=== PATIENT | male | born 1950 | race Caucasian/White ===

== ENCOUNTER 2017-01-17 11:28 | Inpatient (IN) | payer MEDICARE ==
[~2017-01-17] VITALS: Ht 182.9 cm; Wt 116.3 kg
[~2017-01-17 11:28] MED LIST: LACTATED RINGER'S 1000 ML INJ 2,000 ML IV ONE; NORMOSOL R INJ 1,000 ML IV ONE; ONDANSETRON HCL 4 MG/2 ML VIAL IV PUSH ONE; PROPOFOL 200 MG/20 ML AMP IV ONE; SUGAMMADEX SODIUM 200 MG/2 ML VIAL IV PUSH ONE
[2017-01-17] MEDS ORDERED: LISI10TA PO (12:05)
[2017-01-17] MEDS ORDERED: PLAV75TA29 PO (12:05)
[2017-01-17 12:42] LABS: PROTHROMBIN TIME - PATIENT 11.3 SEC (9.8-11.6)
[2017-01-17] MEDS ORDERED: MANNITOL INJ 50 ML ONE (12:50)
[2017-01-17] MEDS ORDERED: ceFAZolin 2 GM PREMIX 50 ML ONE (12:54)
[2017-01-17] MEDS ORDERED: MIDAZOLAM HCL 2 MG/2 ML VIAL ONE (13:14)
[2017-01-17] MEDS ORDERED: FAMOTIDINE 20 MG/2 ML VIAL ONE (13:14)
[2017-01-17] MEDS ORDERED: DEXAMETHASONE SOD PHOS 4 MG/ML VIAL ONE (13:14)
[2017-01-17] MEDS ORDERED: POVIDONE IODINE 5% (ANTISEPSIS KIT) 4 APPLICATIONS EACH NARE PRN (13:15)
[2017-01-17] MEDS ORDERED: SODIUM CHLORID 0.9% 500 ML IV PRN (13:15)
[2017-01-17] MEDS ORDERED: CHLORHEXIDINE GLUCONATE 2 % 1 PACK (2 CLOTHS) TOPICAL PRN (13:15)
[2017-01-17] MEDS ORDERED: LACTATED RINGER'S 1000 ML IV PRN (13:15)
[2017-01-17] MEDS ORDERED: INSULIN HUMAN REGULAR 1,000 UNITS/10 ML VIAL SQ PRN (13:15)
[2017-01-17] MEDS ORDERED: METOPROLOL TARTRATE 25 MG TAB PO PRN (13:15)
[2017-01-17 15:41] LABS: BLOOD GAS BASE EXCESS -3.6 mmol/L (-2-2); BLOOD GAS HCO3 22 mmol/L (22-26); BLOOD GAS METHEMOGLOBIN 0.7 % (0-2); BLOOD GAS O2 HGB SATURATION 97 % (90-100); BLOOD GAS OXYGEN CONTENT 21.4 Vol % (12.0-20.0); BLOOD GAS PCO2 46 mmHg (38-42); BLOOD GAS PO2 172 mmHG (61-120); BLOOD GAS TOTAL HGB 15.4 G/DL (12.0-16.0); CRITICAL VALUE NO; OXYGEN DEVICE OR GAS; TEMP CORR TO 98.6
[2017-01-17 15:42] LABS: DRAW SITE ALINE; STAT YES
[2017-01-17] MEDS ORDERED: HYDROmorphone HCL PF 2 MG/ML VIAL ONE (16:52)
[2017-01-17] MEDS ORDERED: ONDANSETRON HCL 4 MG/2 ML VIAL IV PUSH PRN (17:45)
[2017-01-17] MEDS ORDERED: MORPHINE SULFATE 4 MG/ML INJ IV PUSH PRN (17:45)
[2017-01-17] MEDS: SODIUM CHLOR 0.9% 1000 ML INJ 1,000 ML IV SCH (19:00)
[2017-01-17] MEDS: ACETAMINOPHEN 1000 MG/100 ML VIAL IV SCH (20:00)
[2017-01-17] MEDS: PANTOPRAZOLE SODIUM 40 MG VIAL IV PUSH SCH (20:00)
[2017-01-17 21:00] VITALS: BP_SYST 131; BP_SYST 137; BP_DIAS 66; PULSE 78; RESP 18; TEMP 97; O2SAT 95
[2017-01-17] MEDS ORDERED: DO NOT ADM ANY ANTICOAGULANT DRUGS PRN (21:15)
[2017-01-18] VITALS (7 sets, daily range): BP systolic 120–176; BP diastolic 58–76; PULSE 64–81; RESP 16–18; TEMP 96.2–97.9; O2SAT 91–98
[2017-01-18] MEDS: SODIUM CHLOR 0.9% 1000 ML INJ 1,000 ML IV SCH ×2 (02:25→11:12)
[2017-01-18] MEDS: ACETAMINOPHEN 1000 MG/100 ML VIAL IV SCH ×4 (02:25→20:00)
[2017-01-18 08:09] LABS: AUTOMATED NEUTROPHIL # 12.7 TH/MM3 (1.8-7.7); BASOPHIL % 0.1 % (0.0-2.0); HEMATOCRIT 41.6 % (39.0-51.0); HEMO FLAGS DIFF FINAL; LYMPH % 5.3 % (9.0-44.0); LYMPHOCYTE # 0.8 TH/MM3 (1.0-4.8); MEAN CELL VOLUME 90.2 FL (80.0-100.0); MEAN CORPUSCULAR HEMOGLOBIN 29.5 PG (27.0-34.0); MEAN CORPUSCULAR HGB CONC 32.8 % (32.0-36.0); MONO % 9.7 % (0.0-8.0); NEUT % 84.9 % (16.0-70.0); PLATELET COUNT 381 TH/MM3 (150-450); RED BLOOD COUNT 4.62 MIL/MM3 (4.50-5.90); RED CELL DISTRIBUTION WIDTH 14.2 % (11.6-17.2)
[2017-01-18 08:31] LABS: BICARBONATE 24.5 MEQ/L (21.0-32.0); POTASSIUM 4.4 MEQ/L (3.5-5.1)
--- NOTE | 2017-01-18 12:44 | HHI.PR ---
Subjective Patient symptoms today doing well. pain controlled. ambulating. voided on own. has appetite. Denies flatus, CP, SOB. Objective Vital Signs Vital Signs Date Time Temp Pulse Resp B/P (MAP) Pulse Ox O2 Delivery O2 Flow Rate FiO2 01/18/17 12:00 96.4 64 16 150/70 (96) 98 01/18/17 08:00 96.2 69 18 152/71 (98) 97 01/18/17 04:00 97.4 81 18 120/58 (78) 95 01/18/17 00:00 97.6 70 18 127/60 (82) 95 01/17/17 21:00 97.0 78 18 137/66 (89) 95 01/17/17 20:30 76 20 146/68 (94) 97 Nasal Cannula 4 01/17/17 19:30 81 20 137/53 (81) 95 Nasal Cannula 4 01/17/17 19:15 82 20 138/63 (88) 95 Nasal Cannula 4 01/17/17 19:00 85 20 140/61 (87) 95 Nasal Cannula 4 01/17/17 18:45 86 20 139/64 (89) 94 Nasal Cannula 4 01/17/17 18:30 88 20 141/63 (89) 90 Nasal Cannula 4 01/17/17 18:10 98.6 92 20 142/66 (91) 94 Nasal Cannula 4 Intake & Output 01/18/17 01/18/17 07:00 19:00 Intake Total 480 ml Output Total 1750 ml Balance -1270 ml Intake Oral 480 ml Output Urine Total 1750 ml Result Diagram: 01/18/17 0752 01/18/17 0752 Objective Remarks NAD. A/O x 3 RRR CTAB. on O2 abd soft, appropriate, minimal distention with abdominal binder in place. No peritoneal signs. Ext NT. No c/c/e Medications and IVs Current Medications Medications (Trade) Dose Ordered Sig/Silvestre Route Start Time Stop Time Status Last Admin Lactated Ringer's 1,000 ml @ 30 mls/hr Q24H PRN IV 01/17/17 13:15 01/20/17 13:14 Sodium Chloride 500 ml @ 30 mls/hr [id number] PRN IV 01/17/17 13:15 01/20/17 13:14 (Lopressor) 25 mg DIETITIAN TEACHER PRN PO 01/17/17 13:15 01/20/17 13:14 (Betadine 5% Antisepsis Kit) 1 applic DIETITIAN TEACHER PRN EACH NARE 01/17/17 13:15 01/20/17 13:14 01/17/17 12:00 (Chlorhexidine 2% Cloth) 3 pack DIETITIAN TEACHER PRN TOPICAL 01/17/17 13:15 01/20/17 13:14 01/17/17 11:40 (NovoLIN R INJ) See Protocol Table ... DIETITIAN TEACHER PRN SQ 01/17/17 13:15 01/20/17 13:14 Cefazolin Sodium 1000 mg/Sodium Chloride 100 ml @ 200 mls/hr Q8H IV 01/17/17 21:00 01/18/17 04:52 (Protonix Inj) 40 mg Q24H IV PUSH 01/17/17 20:00 01/17/17 20:00 (Zofran Inj) 4 mg Q6H PRN IV PUSH 01/17/17 17:45 (Roxicodone) 10 mg Q4H PRN PO 01/17/17 17:45 (Roxicodone) 5 mg Q4H PRN PO 01/17/17 17:45 (Ofirmev 1000 Mg/ 100 ml Inj) 1,000 mg Q6H IV 01/17/17 20:00 01/18/17 11:05 (Morphine Inj) 4 mg Q3H PRN IV PUSH 01/17/17 17:45 Sodium Chloride 1,000 ml @ 125 mls/hr Q8H IV 01/17/17 17:45 01/18/17 11:12 Miscellaneous Information ALL NURSING DEPARTME... UNSCH PRN .XX 01/17/17 21:15 01/18/17 21:14 Assessment and Plan Assessment and Plan POD #1 s/p Right Robotic Radical Nephrectomy -doing well. -Hgb stable. -Advance diet -Hep Lock IV -GI/DVt prophylaxis -Ambulate, IS -Creatinine rising as expected. Repeat BMP in Ben Rothman MD Jan 18, 2017 12:44
[2017-01-18] MEDS: PANTOPRAZOLE SODIUM 40 MG VIAL IV PUSH SCH (20:00)
[2017-01-19] VITALS (7 sets, daily range): BP systolic 142–181; BP diastolic 67–90; PULSE 73–96; RESP 17–18; TEMP 96.2–97.6; O2SAT 90–94
[2017-01-19] MEDS: ACETAMINOPHEN 1000 MG/100 ML VIAL IV SCH ×4 (02:00→22:34)
[2017-01-19 09:55] LABS: BICARBONATE 27.2 MEQ/L (21.0-32.0); POTASSIUM 4.3 MEQ/L (3.5-5.1)
[2017-01-19] MEDS ORDERED: METOCLOPRAMIDE HCL 10 MG/2 ML VIAL IV PUSH PRN (13:00)
--- NOTE | 2017-01-19 13:04 | HHI.PR ---
Subjective Patient symptoms today very nauseous overnight, especially after eating. feels worn out. BP elevated. Denies flatus, CP, SOB. C/o swelling around his RLQ incision. Objective Vital Signs Vital Signs Date Time Temp Pulse Resp B/P (MAP) Pulse Ox O2 Delivery O2 Flow Rate FiO2 01/19/17 10:01 82 142/79 (100) 01/19/17 08:00 96.3 96 18 181/90 (120) 94 01/19/17 04:00 96.9 81 18 164/81 (108) 90 01/19/17 00:00 97.6 75 17 143/68 (93) 91 01/18/17 20:00 97.9 76 17 133/67 (89) 91 01/18/17 18:01 76 140/75 (96) 01/18/17 16:00 97.0 72 16 176/76 (109) Result Diagram: 01/18/17 0752 01/19/17 0842 Objective Remarks NAD. A/O x 3 RRR CTAB. on O2 abd soft, appropriate, some swelling around RLQ incision with ecchymoses, likely hematoma. no tenderness, peritoneal signs. Ext NT. No c/c/e Medications and IVs Current Medications Medications (Trade) Dose Ordered Sig/Silvestre Route Start Time Stop Time Status Last Admin Lactated Ringer's 1,000 ml @ 30 mls/hr Q24H PRN IV 01/17/17 13:15 01/20/17 13:14 Sodium Chloride 500 ml @ 30 mls/hr [id number] PRN IV 01/17/17 13:15 01/20/17 13:14 (Lopressor) 25 mg ACCOUNT FINANCIAL MANAGER PRN PO 01/17/17 13:15 01/20/17 13:14 (Betadine 5% Antisepsis Kit) 1 applic ACCOUNT FINANCIAL MANAGER PRN EACH NARE 01/17/17 13:15 01/20/17 13:14 01/17/17 12:00 (Chlorhexidine 2% Cloth) 3 pack ACCOUNT FINANCIAL MANAGER PRN TOPICAL 01/17/17 13:15 01/20/17 13:14 01/17/17 11:40 (NovoLIN R INJ) See Protocol Table ... ACCOUNT FINANCIAL MANAGER PRN SQ 01/17/17 13:15 01/20/17 13:14 (Protonix Inj) 40 mg Q24H IV PUSH 01/17/17 20:00 01/17/17 20:00 (Zofran Inj) 4 mg Q6H PRN IV PUSH 01/17/17 17:45 01/19/17 01:07 (Roxicodone) 10 mg Q4H PRN PO 01/17/17 17:45 01/19/17 08:56 (Roxicodone) 5 mg Q4H PRN PO 01/17/17 17:45 01/19/17 04:35 (Ofirmev 1000 Mg/ 100 ml Inj) 1,000 mg Q6H IV 01/17/17 20:00 01/19/17 08:56 (Morphine Inj) 4 mg Q3H PRN IV PUSH 01/17/17 17:45 Non-Formulary Medication 1 tab DAILY PO 01/19/17 13:00 UNV Sodium Chloride 1,000 ml @ 100 mls/hr Q10H IV 01/19/17 13:00 UNV Assessment and Plan Assessment and Plan POD #2 s/p Right Robotic Radical Nephrectomy -Restart BP meds. Will consult Hospitalist to see if it needs adjusted. Increase in BP likely related to pain, nausea. -Clear liquid diet -Restart IVF -Check BMP, CBC in A.M. -Keep abdominal binder in place. -GI/DVt prophylaxis Ben Puentes MD Jan 19, 2017 13:04
[2017-01-19] MEDS ORDERED: HYDROCHLOROTHIAZIDE 12.5 MG CAP PO SCH (14:00)
[2017-01-19] MEDS ORDERED: LISINOPRIL 10 MG TAB PO SCH (14:00)
[2017-01-19] MEDS: SODIUM CHLOR 0.9% 1000 ML INJ 1,000 ML IV SCH ×2 (15:14→22:34)
--- NOTE | 2017-01-19 16:22 | PD.CONS ---
HPI Service [facility] [place] Hospitalists Consult Requested By Dr. Ben Puentes Reason for Consult Medical Management Primary Care Physician Misael Reed M.D. Diagnoses: History of Present Illness Mr. Villegas is a pleasant 67 y/o male with hx of PVD and has undergone multiple LE vascular angioplasty/stenting procedures previously. He was being worked up as an outpt for claudication and underwent evaluation with a CTA of the aorta with runoff on 11/25. The CTA revealed extensive bilateral LE stenting of the iliacs and SFA/popliteals with occlusion of the right SFA/popliteal stent with collateral reconstitution of the above-knee popliteal, in the LLE there was 40-50% stenosis of the common femoral artery, and pt had an incidental finding of a 3.7cm mass in the right kidney concerning for RCC. Pt was sent for an MRI of the abdomen which noted a 4.1cm heterogenously enhancing mass in the mid right kidney most characteristic for RCC. Pt was sent to Urology for evaluation and pt was admitted to [facility] on 01/17/17 for right robotic radical nephrectomy with Dr. Puentes. [facility] Hospitalist team was consulted for help with medical management. Pts BP elevated today with systolic as high as 181 but he has been having more post-op pain today and some nausea. Pt has a hx of HTN and normally takes Lisinopril-Hctz 10-12.5 Mg PO DAILY and Amlodipine 10mg PO DAILY for his BP control. The Lisinopril and HCTZ were resumed by his attending physician today. Pts renal function is worsened from baseline, which is to be expected with this type of surgery. Review of Systems Constitutional: DENIES: Fever, Chills, Dizziness Ears, nose, mouth, throat: DENIES: Vertigo Respiratory: DENIES: Cough, Shortness of breath Cardiovascular: DENIES: Chest pain, Lower Extremity Edema Gastrointestinal: COMPLAINS OF: Abdominal pain, Nausea, DENIES: Constipation, Diarrhea Genitourinary: DENIES: Hematuria Musculoskeletal: COMPLAINS OF: Back pain Integumentary: DENIES: Rash Neurologic: DENIES: Headache Psychiatric: DENIES: Confusion Past Family Social History Past Medical History PVD HTN Hyperlipidemia Hx of Crohn's disease, dx in Osteoarthritis Past Surgical History Multiple previous bilateral LE angioplasty and stent procedures with Dr. Dempsey Fem-Pop bypass surgery Hernia surgery Right shoulder arthroscopy Reported Medications -Lisinopril-Hctz 10-12.5 Mg PO DAILY -Plavix 75 Mg PO DAILY -Amlodipine 10mg PO DAILY Allergies: Coded Allergies: No Known Allergies (Verified , 01/17/17) Family History Mother with hx of CVA Father with hx of HTN Social History Occasional alcohol use Hx of tobacco use, started smoking during ans smoked upwards of 3ppd but quit in 2008. Denies any illicit drug use Pt was a police office with [employer] Physical Exam Vital Signs Vital Signs Date Time Temp Pulse Resp B/P (MAP) Pulse Ox O2 Delivery O2 Flow Rate FiO2 01/19/17 12:00 96.4 78 18 144/78 (100) 92 01/19/17 10:01 82 142/79 (100) 01/19/17 08:00 96.3 96 18 181/90 (120) 94 01/19/17 04:00 96.9 81 18 164/81 (108) 90 01/19/17 00:00 97.6 75 17 143/68 (93) 91 01/18/17 20:00 97.9 76 17 133/67 (89) 91 01/18/17 18:01 76 140/75 (96) 01/18/17 16:00 97.0 72 16 176/76 (109) Physical Exam GENERAL: This is a well-nourished, well-developed patient, in no apparent distress. HEENT: Atraumatic. Normocephalic. No temporal or scalp tenderness. No scleral icterus. Airway patent. NECK: Trachea midline, supple, nontender. CARDIO: Regular. RESP: CTA bilaterally. No wheezes, rales, or rhonchi. ABD: +BS, soft, swelling around RLQ incision with ecchymoses, no increased tenderness, no rebound. EXT: Extremities without clubbing, cyanosis, or edema. NEURO: Awake and alert. Motor and sensory grossly within normal limits. Normal speech. Laboratory Laboratory Tests Test 01/19/17 08:42 Blood Urea Nitrogen 26 Creatinine 2.27 Random Glucose 134 Calcium Level 9.5 Sodium Level 137 Potassium Level 4.3 Chloride Level 102 Carbon Dioxide Level 27.2 Anion Gap 8 Estimat Glomerular Filtration Rate 29 Result Diagram: 01/18/17 0752 01/19/17 0842 Assessment and Plan Problem List: (1) Right kidney mass ICD Codes: N28.89 - Other specified disorders of kidney and ureter Plan: - Pt is a 67 y/o male with hx of HTN and PVD who was previously being worked up for claudication with a CTA of the aorta with runoff and had an incidental finding of a right kidney mass. - Pt was evaluated by Urology and was admitted for right robotic radical nephrectomy which was performed on 01/17/[address] Puentes. - Pathology is pending. - Post-op pain control per attending. - IS - PT daily - Pt is on IVF with NS @ 100mL/hr - Monitor BMP daily - Supportive care - DVT prophylaxis with SCDs (2) CORINA (acute kidney injury) ICD Codes: N17.9 - Acute kidney failure, unspecified Status: Acute Plan: - Pts baseline Cr is 1.2-1.3 - Pts Cr is elevated 2.27 today - He is on IVF - Monitor labs (3) HTN (hypertension) ICD Codes: I10 - Essential (primary) hypertension Plan: - At home pt is on Lisinopril/HCTZ 10/12.5mg po daily and Norvasc 10mg po daily - His BP has been elevated today likely secondary to post-op pain and nausea. - His Lisinopril and HCTZ were resumed today but in light of his elevated renal function we will hold these - Clonidine PRN (4) PVD (peripheral vascular disease) ICD Codes: I73.9 - Peripheral vascular disease, unspecified Plan: - Pt with an extensive hx of PVD and previous multiple angioplasty/stenting procedures. - Pt most recently has followed with Dr. Najera. - He had previous CTA of the aorta with runoff which noted extensive bilateral LE stenting of the iliacs and SFA/popliteals with occlusion of the right SFA/popliteal stent with collateral reconstitution of the above-knee popliteal, in the LLE there was 40-50% stenosis of the common femoral artery - He will need to followup with Dr. Najera after this hospitalization. Ayah Silva Jan 19, 2017 16:14
[2017-01-19] MEDS ORDERED: cloNIDine HCL 0.1 MG TAB PO PRN (16:30)
[2017-01-19] MEDS: PANTOPRAZOLE SODIUM 40 MG VIAL IV PUSH SCH (22:31)
[2017-01-20] VITALS: BP 121/64; PULSE 74; RESP 16; TEMP 96.8; O2SAT 93
[2017-01-20] MEDS: ACETAMINOPHEN 1000 MG/100 ML VIAL IV SCH ×4 (02:00→20:11)
[2017-01-20 04:00] VITALS: BP 154/71; PULSE 78; RESP 18; TEMP 96.9; O2SAT 93
[2017-01-20 07:58] LABS: HEMATOCRIT 43.1 % (39.0-51.0); MEAN CELL VOLUME 89.3 FL (80.0-100.0); MEAN CORPUSCULAR HEMOGLOBIN 30.1 PG (27.0-34.0); MEAN CORPUSCULAR HGB CONC 33.7 % (32.0-36.0); PLATELET COUNT 383 TH/MM3 (150-450); RED BLOOD COUNT 4.82 MIL/MM3 (4.50-5.90); RED CELL DISTRIBUTION WIDTH 14.5 % (11.6-17.2); REVIEW FLAG FINAL; WHITE BLOOD COUNT 13.4 TH/MM3 (4.0-11.0)
[2017-01-20 08:00] VITALS: BP 128/67; PULSE 73; RESP 16; TEMP 96.5; O2SAT 93
[2017-01-20] MEDS: SODIUM CHLOR 0.9% 1000 ML INJ 1,000 ML IV SCH ×2 (08:39→20:11)
--- NOTE | 2017-01-20 09:07 | HHI.PR ---
Subjective Remarks pt being resistive to resuming bp meds no bm. no flatus worried about swelling at the surgical site denies any significant pain or nausea at present. Objective Vitals nad in chair heart reg lung cta abd minimal bs/bruising and swelling over the rlq surgical site ext no edema Vital Signs Date Time Temp Pulse Resp B/P (MAP) Pulse Ox O2 Delivery O2 Flow Rate FiO2 01/20/17 04:00 96.9 78 18 154/71 (98) 93 01/20/17 00:00 96.8 74 16 121/64 (83) 93 01/19/17 20:00 96.2 75 18 143/67 (92) 94 01/19/17 16:24 96.3 73 18 148/72 (97) 91 01/19/17 12:00 96.4 78 18 144/78 (100) 92 01/19/17 10:01 82 142/79 (100) Result Diagram: 01/20/17 0722 01/20/17 0722 A/P Problem List: (1) Right kidney mass ICD Codes: N28.89 - Other specified disorders of kidney and ureter Plan: - Pt is a 67 y/o male with hx of HTN and PVD who was previously being worked up for claudication with a CTA of the aorta with runoff and had an incidental finding of a right kidney mass. - Pt was evaluated by Urology and was admitted for right robotic radical nephrectomy which was performed on 01/17/[address] Puentes. - Pathology is pending. - Post-op pain control per attending. - IS - PT daily - Pt is on IVF with NS @ 100mL/hr - Monitor BMP daily - Supportive care - DVT prophylaxis with SCDs -no bm/flatus. kub ordered. laxative. ambulate. hopefully he will require less pain meds. (2) CORINA (acute kidney injury) ICD Codes: N17.9 - Acute kidney failure, unspecified Status: Acute Plan: - Pts baseline Cr is 1.2-1.3 - improving today - He is on IVF - Monitor labs (3) HTN (hypertension) ICD Codes: I10 - Essential (primary) hypertension Status: Acute Plan: - At home pt is on Lisinopril/HCTZ 10/12.5mg po daily and Norvasc 10mg po daily - Pt thinks his outpt doctors rushed to place him on bp meds and he is a little resistant to resuming them. - I discussed holding the sheree and diuretic until renal function improved. If his bp is high this AM we will plan to resume his ccb. prn control ordered. (4) PVD (peripheral vascular disease) ICD Codes: I73.9 - Peripheral vascular disease, unspecified Plan: - Pt with an extensive hx of PVD and previous multiple angioplasty/stenting procedures. - Pt most recently has followed with Dr. Najera. - He had previous CTA of the aorta with runoff which noted extensive bilateral LE stenting of the iliacs and SFA/popliteals with occlusion of the right SFA/popliteal stent with collateral reconstitution of the above-knee popliteal, in the LLE there was 40-50% stenosis of the common femoral artery - He will need to followup with Dr. Najera after this hospitalization. Jayden Aj MD Jan 20, 2017 09:07
[2017-01-20] MEDS ORDERED: BISACODYL EC 5 MG TABEC PO ONE (09:15)
--- NOTE | 2017-01-20 11:41 | RADRPT ---
EXAM DATE/TIME: 01/20/2017 10:10 [facility] COMPARISON: No previous studies available for comparison. INDICATIONS : Evaluate for Ileus. Nausea, vomiting, constipation. MEDICAL HISTORY : Hypertension. SURGICAL HISTORY : Nephrectomy, right. ENCOUNTER: Initial ACUITY: 3 days PAIN SCORE: 2/10 LOCATION: Bilateral lower quadrant FINDINGS: There is extensive subcutaneous gas in the patient's right lateral abdominal wall. Bilateral iliac st ents are in place. There are loops of small bowel that appear dilated with maximum diameter of 6.1 cm and there is some gas in the colon, however most of the colon appears decompressed. CONCLUSION: Extensive subcutaneous emphysema and the etiology is uncertain with loops of small bowel that appear dilated. Small bowel loops could be postoperative ileus and the patient had robotic nephrectomy which could explain some of the subcutaneous gas and swelling in the abdominal wall on the right, however clinical correlation is suggested to exclude infectious process possible fasciitis in addition to pot ential unusual gas leak from bowel perforation. Findings were discussed with Dr. Aj on 017 at the time of this dictation. Gris Marshall MD on January 20, 2017 at 11:28 Board Certified Radiologist. This report was verified electronically.
[2017-01-20 12:00] VITALS: BP 119/61; PULSE 74; RESP 16; TEMP 96.8; O2SAT 94
--- NOTE | 2017-01-20 12:09 | HHI.PR ---
Subjective Patient symptoms today c/o more swelling at surgical incision, slightly more pain. Denies fevers, chills, flatus. Denies appetite. Nausea resolved. Tolerating clears. Objective Vital Signs Vital Signs Date Time Temp Pulse Resp B/P (MAP) Pulse Ox O2 Delivery O2 Flow Rate FiO2 01/20/17 08:00 96.5 73 16 128/67 (87) 93 01/20/17 04:00 96.9 78 18 154/71 (98) 93 01/20/17 00:00 96.8 74 16 121/64 (83) 93 01/19/17 20:00 96.2 75 18 143/67 (92) 94 01/19/17 16:24 96.3 73 18 148/72 (97) 91 Intake & Output 01/20/17 01/20/17 07:00 19:00 # Voids 4 # Bowel Movements 0 Result Diagram: 01/20/17 0722 01/20/17 0722 Imaging Last 24 hours Impressions Abdomen X-Ray 01/20/17 0000 Signed Impressions: Service Date/Time: Friday, January 20, 2017 10:10 - CONCLUSION: Extensive subcutaneous emphysema and the etiology is uncertain with loops of small bowel that appear dilated. Small bowel loops could be postoperative ileus and the patient had robotic nephrectomy which could explain some of the subcutaneous gas and swelling in the abdominal wall on the right, however clinical correlation is suggested to exclude infectious process possible fasciitis in addition to potential unusual gas leak from bowel perforation. Findings were discussed with Dr. Aj on 01/20/2017 at the time of this dictation. Gris Marshall MD Objective Remarks NAD. A/O x 3 [address]AB. abd soft, appropriate, some swelling around RLQ incision with ecchymoses, likely hematoma. no tenderness, peritoneal signs. Ext NT. No c/c/e scrotum soft, NT. Medications and IVs Current Medications Medications (Trade) Dose Ordered Sig/Silvestre Route Start Time Stop Time Status Last Admin Lactated Ringer's 1,000 ml @ 30 mls/hr Q24H PRN IV 01/17/17 13:15 01/20/17 13:14 Sodium Chloride 500 ml @ 30 mls/hr [id number] PRN IV 01/17/17 13:15 01/20/17 13:14 (Lopressor) 25 mg TOWNSHIP SUPERVISOR PRN PO 01/17/17 13:15 01/20/17 13:14 (Betadine 5% Antisepsis Kit) 1 applic TOWNSHIP SUPERVISOR PRN EACH NARE 01/17/17 13:15 01/20/17 13:14 01/17/17 12:00 (Chlorhexidine 2% Cloth) 3 pack TOWNSHIP SUPERVISOR PRN TOPICAL 01/17/17 13:15 01/20/17 13:14 01/17/17 11:40 (NovoLIN R INJ) See Protocol Table ... TOWNSHIP SUPERVISOR PRN SQ 01/17/17 13:15 01/20/17 13:14 (Protonix Inj) 40 mg Q24H IV PUSH 01/17/17 20:00 01/19/17 22:31 (Zofran Inj) 4 mg Q6H PRN IV PUSH 01/17/17 17:45 01/19/17 01:07 (Roxicodone) 10 mg Q4H PRN PO 01/17/17 17:45 01/20/17 04:52 (Roxicodone) 5 mg Q4H PRN PO 01/17/17 17:45 01/19/17 04:35 (Ofirmev 1000 Mg/ 100 ml Inj) 1,000 mg Q6H IV 01/17/17 20:00 01/20/17 08:38 (Morphine Inj) 4 mg Q3H PRN IV PUSH 01/17/17 17:45 Sodium Chloride 1,000 ml @ 100 mls/hr Q10H IV 01/19/17 13:00 01/20/17 08:39 (Reglan Inj) 5 mg Q8H PRN IV PUSH 01/19/17 13:00 (Catapres) 0.1 mg Q6H PRN PO 01/19/17 16:30 Assessment and Plan Assessment and Plan POD #3 s/p Right Robotic Radical Nephrectomy -KUB reviewed. Likely post op ileus. Subcutaneous emphysema secondary to recent surgery -Hgb stable. Repeat in A.M. -Creatinine improving. Repeat in A.M. -GI/DVT prophylaxis -Ambulate, IS. -Appreciate Hospitalist assistance. Ben Puentes MD Jan 20, 2017 12:09
[2017-01-20] MEDS ORDERED: BISACODYL 10 MG SUPP RECTAL PRN (12:15)
[2017-01-20 16:00] VITALS: BP 120/66; PULSE 80; RESP 16; TEMP 96; O2SAT 94
[2017-01-20] MEDS: CLINDAMYCIN INJ 900 MG in SODIUM CHLORIDE 0.9% INJ 100 ML IV SCH ×2 (16:57→23:00)
[2017-01-20] MEDS: PANTOPRAZOLE SODIUM 40 MG VIAL IV PUSH SCH (20:11)
[2017-01-20 21:23] VITALS: BP 137/69; PULSE 78; RESP 17; TEMP 96.4; O2SAT 94
[2017-01-21 01:01] VITALS: BP 132/63; PULSE 68; RESP 18; TEMP 96.5; O2SAT 94
[2017-01-21] MEDS: ACETAMINOPHEN 1000 MG/100 ML VIAL IV SCH ×4 (02:00→21:08)
[2017-01-21] MEDS: SODIUM CHLOR 0.9% 1000 ML INJ 1,000 ML IV SCH ×2 (05:17→08:55)
[2017-01-21] MEDS: CLINDAMYCIN INJ 900 MG in SODIUM CHLORIDE 0.9% INJ 100 ML IV SCH ×3 (05:17→22:47)
[2017-01-21 05:28] VITALS: BP 147/70; PULSE 77; RESP 18; TEMP 96.7; O2SAT 95
[2017-01-21 07:50] VITALS: BP 142/67; PULSE 78; RESP 20; TEMP 97.4; O2SAT 96
--- NOTE | 2017-01-21 09:02 | HHI.PR ---
Subjective Remarks passing flatus denies pain no vomiting. tolerating clears. ambulating pt still insisting on trial off all antihypertensives. Objective Vitals heart reg lung cta abd rlq incision. ecchymosis no crepitus. appropriate tenderness minimal bs ext no edema Vital Signs Date Time Temp Pulse Resp B/P (MAP) Pulse Ox O2 Delivery O2 Flow Rate FiO2 01/21/17 05:28 96.7 77 18 147/70 (95) 95 01/21/17 01:01 96.5 68 18 132/63 (86) 94 01/20/17 21:23 96.4 78 17 137/69 (91) 94 01/20/17 16:00 96.0 80 16 120/66 (84) 94 01/20/17 12:00 96.8 74 16 119/61 (80) 94 Result Diagram: 01/20/1772101/20/17 0722 A/P Problem List: (1) Right kidney mass ICD Codes: N28.89 - Other specified disorders of kidney and ureter Plan: - Pt is a 67 y/o male with hx of HTN and PVD who was previously being worked up for claudication with a CTA of the aorta with runoff and had an incidental finding of a right kidney mass. - Pt was evaluated by Urology and was admitted for right robotic radical nephrectomy which was performed on 01/17/[address] Puentes. - Pathology...renal cell carcinoma - Post-op pain control per attending. - IS - PT daily - Pt is on IVF with NS @ 100mL/hr - Monitor BMP daily...improving cr/gfr - DVT prophylaxis with SCDs - kub consistent with mild ileus...flatus overnight. pt is not using narcotic pain meds now. He is ambulating. cont mild stim. laxatives. ( relistor if necessary) diet advancement per Urology clinda started for gas in abdomen wall...?most likely from the surgery. ? repeat kub tomorrow to see if air dissipates. I discussed with radiology who thinks the air should dissipate after 2-3 days from surgery if related. (2) CORINA (acute kidney injury) ICD Codes: N17.9 - Acute kidney failure, unspecified Status: Acute Plan: - Pts baseline Cr is 1.2-1.3 - improving today - He is on IVF - Monitor labs (3) HTN (hypertension) ICD Codes: I10 - Essential (primary) hypertension Status: Acute Plan: - At home pt is on Lisinopril/HCTZ 10/12.5mg po daily and Norvasc 10mg po daily - Pt thinks his outpt doctors rushed to place him on bp meds and he is a little resistant to resuming them. - I discussed holding the sheree and diuretic until renal function improved. If his bp is high this AM we will plan to resume his ccb. prn control ordered. (4) PVD (peripheral vascular disease) ICD Codes: I73.9 - Peripheral vascular disease, unspecified Plan: - Pt with an extensive hx of PVD and previous multiple angioplasty/stenting procedures. - Pt most recently has followed with Dr. Najera. - He had previous CTA of the aorta with runoff which noted extensive bilateral LE stenting of the iliacs and SFA/popliteals with occlusion of the right SFA/popliteal stent with collateral reconstitution of the above-knee popliteal, in the LLE there was 40-50% stenosis of the common femoral artery - He will need to followup with Dr. Najera after this hospitalization. Jayden Aj MD Jan 21, 2017 09:01
[2017-01-21 11:50] VITALS: BP 137/67; PULSE 76; RESP 20; TEMP 97.7; O2SAT 96
[2017-01-21 12:26] LABS: BASOPHIL # 0.1 TH/MM3 (0-0.2); BASOPHIL % 0.8 % (0.0-2.0); EOSINOPHIL # 0.3 TH/MM3 (0-0.4); EOSINOPHIL % 3.2 % (0.0-4.0); HEMATOCRIT 41.6 % (39.0-51.0); HEMO FLAGS DIFF FINAL; LYMPH % 15.2 % (9.0-44.0); LYMPHOCYTE # 1.5 TH/MM3 (1.0-4.8); MEAN CELL VOLUME 89.9 FL (80.0-100.0); MEAN CORPUSCULAR HEMOGLOBIN 29.5 PG (27.0-34.0); MEAN CORPUSCULAR HGB CONC 32.8 % (32.0-36.0); NEUT % 70.8 % (16.0-70.0); PLATELET COUNT 406 TH/MM3 (150-450); RED BLOOD COUNT 4.62 MIL/MM3 (4.50-5.90); RED CELL DISTRIBUTION WIDTH 14.4 % (11.6-17.2); WHITE BLOOD COUNT 9.9 TH/MM3 (4.0-11.0)
[2017-01-21 12:53] LABS: BICARBONATE 26.6 MEQ/L (21.0-32.0); POTASSIUM 4.2 MEQ/L (3.5-5.1)
[2017-01-21] MEDS: BISACODYL EC 5 MG TABEC PO SCH (12:56)
[2017-01-21 15:50] VITALS: BP 128/61; PULSE 83; RESP 20; TEMP 96.6; O2SAT 96
[2017-01-21 20:00] VITALS: BP 165/76; PULSE 74; RESP 16; TEMP 97.4; O2SAT 96
[2017-01-21] MEDS: PANTOPRAZOLE SODIUM 40 MG VIAL IV PUSH SCH (21:08)
[2017-01-22] VITALS (7 sets, daily range): BP systolic 139–188; BP diastolic 65–79; PULSE 66–80; RESP 16–20; TEMP 96.4–97.9; O2SAT 95–97
[2017-01-22] MEDS: SODIUM CHLOR 0.9% 1000 ML INJ 1,000 ML IV SCH ×2 (01:54→19:26)
[2017-01-22] MEDS: ACETAMINOPHEN 1000 MG/100 ML VIAL IV SCH ×4 (01:54→19:20)
--- NOTE | 2017-01-22 04:50 | RADRPT ---
EXAM DATE/TIME: 01/22/2017 03:56 [facility] COMPARISON: ABDOMEN KUB ONLY, January 20, 2017, 10:10. INDICATIONS : Distention. MEDICAL HISTORY : Hypertension. SURGICAL HISTORY : Nephrectomy, right. ENCOUNTER: Initial ACUITY: 4 - 6 days PAIN SCORE: 3/10 LOCATION: Bilateral lower quadrant FINDINGS: Persistent but slightly decreased small bowel distention, now [id number]. No colonic distention or gastric distention demonstrated. Right-sided abdominal wall emphysema again seen, decreasing and presumably postoperative. No definite free intraperitoneal air. CONCLUSION: Slightly decreased small bowel distention, probably a slowly resolving ileus. Miguel Angel Macias MD on January 22, 2017 at 4:46 Board Certified Radiologist. This report was verified electronically.
[2017-01-22] MEDS: CLINDAMYCIN INJ 900 MG in SODIUM CHLORIDE 0.9% INJ 100 ML IV SCH ×3 (05:08→22:24)
--- NOTE | 2017-01-22 08:58 | HHI.PR ---
Subjective Remarks pt says he had a liquid bm this AM. no new problems Objective Vitals heart reg luing cta abd bs/rlq incision. no drainage. ext no edema Vital Signs Date Time Temp Pulse Resp B/P (MAP) Pulse Ox O2 Delivery O2 Flow Rate FiO2 01/22/17 04:00 97.2 66 16 139/77 (97) 97 01/22/17 00:00 97.0 69 18 144/74 (97) 97 01/21/17 20:00 97.4 74 16 165/76 (105) 96 01/21/17 15:50 96.6 83 20 128/61 (83) 96 01/21/17 11:50 97.7 76 20 137/67 (90) 96 Result Diagram: 01/21/17 1140 01/21/17 1140 A/P Problem List: (1) Right kidney mass ICD Codes: N28.89 - Other specified disorders of kidney and ureter Plan: - Pt is a 67 y/o male with hx of HTN and PVD who was previously being worked up for claudication with a CTA of the aorta with runoff and had an incidental finding of a right kidney mass. - Pt was evaluated by Urology and was admitted for right robotic radical nephrectomy which was performed on 01/17/[address] Puentes. - Pathology...renal cell carcinoma - Post-op pain control per attending. - IS - PT daily - Pt is on IVF with NS @ 100mL/hr - Monitor BMP daily - DVT prophylaxis with SCDs - kub 01/20 consistent with mild ileus and most likely post op air in abdomen wall repeat kub today improving ileus and less abdomen wall air. Pt had bm overnight. .cont ambulation. tolerating diet. he is not requiring any narcotic pain meds. (2) CORINA (acute kidney injury) ICD Codes: N17.9 - Acute kidney failure, unspecified Status: Acute Plan: - Pts baseline Cr is 1.2-1.3 - improving today - He is on IVF - Monitor labs (3) HTN (hypertension) ICD Codes: I10 - Essential (primary) hypertension Status: Acute Plan: - At home pt is on Lisinopril/HCTZ 10/12.5mg po daily and Norvasc 10mg po daily - Pt thinks his outpt doctors rushed to place him on bp meds and he is a little resistant to resuming them. - I discussed holding the sheree and diuretic until renal function improved. If his bp is high this AM we will plan to resume his ccb. prn control ordered. (4) PVD (peripheral vascular disease) ICD Codes: I73.9 - Peripheral vascular disease, unspecified Plan: - Pt with an extensive hx of PVD and previous multiple angioplasty/stenting procedures. - Pt most recently has followed with Dr. Najera. - He had previous CTA of the aorta with runoff which noted extensive bilateral LE stenting of the iliacs and SFA/popliteals with occlusion of the right SFA/popliteal stent with collateral reconstitution of the above-knee popliteal, in the LLE there was 40-50% stenosis of the common femoral artery - He will need to followup with Dr. Najera after this hospitalization. Jayden Aj MD Jan 22, 2017 08:58
[2017-01-22] MEDS: BISACODYL EC 5 MG TABEC PO SCH (14:39)
[2017-01-22] MEDS: PANTOPRAZOLE SODIUM 40 MG VIAL IV PUSH SCH (19:19)
[2017-01-23] VITALS: BP 132/63; PULSE 62; RESP 16; TEMP 96.5; O2SAT 96
[2017-01-23] MEDS: ACETAMINOPHEN 1000 MG/100 ML VIAL IV SCH ×2 (01:58→08:29)
[2017-01-23 04:00] VITALS: BP 160/76; PULSE 56; RESP 16; TEMP 96.1; O2SAT 96
[2017-01-23] MEDS: CLINDAMYCIN INJ 900 MG in SODIUM CHLORIDE 0.9% INJ 100 ML IV SCH (05:12)
[2017-01-23] MEDS: SODIUM CHLOR 0.9% 1000 ML INJ 1,000 ML IV SCH (05:13)
[2017-01-23 08:00] VITALS: BP 147/67; PULSE 63; RESP 16; TEMP 97.1; O2SAT 97
[2017-01-23] MEDS: BISACODYL EC 5 MG TABEC PO SCH (08:29)
--- NOTE | 2017-01-23 08:37 | HHI.PR ---
Subjective Remarks Pt doing well. Tolerating PO intake. + BM Objective Vitals Vital Signs Date Time Temp Pulse Resp B/P (MAP) Pulse Ox O2 Delivery O2 Flow Rate FiO2 01/23/17 04:00 96.1 56 16 160/76 (104) 96 01/23/17 00:00 96.5 62 16 132/63 (86) 96 01/22/17 20:30 66 155/72 (99) 01/22/17 20:00 96.4 71 16 188/79 (115) 97 01/22/17 16:35 96.9 69 20 165/74 (104) 95 01/22/17 12:59 97.2 69 20 153/71 (98) 96 Result Diagram: 01/21/17 1140 01/21/17 1140 Imaging Last Impressions Abdomen X-Ray 01/22/17 0600 Signed Impressions: Service Date/Time: Sunday, January 22, 2017 03:56 - CONCLUSION: Slightly decreased small bowel distention, probably a slowly resolving ileus. Miguel Angel Macias MD Objective Remarks GENERAL: This is a well-nourished, well-developed patient, in no apparent distress. CARDIOVASCULAR: Regular rate and rhythm without murmurs, gallops, or rubs. RESPIRATORY: Clear to auscultation. Breath sounds equal bilaterally. No wheezes , rales, or rhonchi. GASTROINTESTINAL: Abdomen soft, non-tender, nondistended. Normal active bowel sounds MUSCULOSKELETAL: Extremities without clubbing, cyanosis, or edema. NEURO: Alert & Oriented x4 to person, place, time, situation. Moves all ext x4 A/P Problem List: (1) HTN (hypertension) ICD Codes: I10 - Essential (primary) hypertension Status: Acute Plan: - At home pt is on Lisinopril/HCTZ 10/12.5mg po daily and Norvasc 10mg po daily - Pt thinks his outpt doctors rushed to place him on bp meds and he is a little resistant to resuming them. - Pt agrees to resume norvasc at 5mg daily - observe BP readings (2) Right kidney mass ICD Codes: N28.89 - Other specified disorders of kidney and ureter Plan: - Pt is a 67 y/o male with hx of HTN and PVD who was previously being worked up for claudication with a CTA of the aorta with runoff and had an incidental finding of a right kidney mass. - Pt was evaluated by Urology and was admitted for right robotic radical nephrectomy which was performed on 01/17/[address] Puentes. - Pathology...renal cell carcinoma - Post-op pain control per attending. - IS - PT daily - DVT prophylaxis - kub 01/20 consistent with mild ileus and most likely post op air in abdomen wall repeat kub today improving ileus and less abdomen wall air. - (+) BM - repeat BMP in AM - tylenol/ oxycodone prn pain, but pain has been controlled with tylenol - encourage OOB to chair - anticipate d/c to home 01/24/17 (3) CORINA (acute kidney injury) ICD Codes: N17.9 - Acute kidney failure, unspecified Status: Acute Plan: - Pts baseline Cr is 1.2-1.3 - stop IVFs - encourage PO intake - repeat BMP in AM (4) PVD (peripheral vascular disease) ICD Codes: I73.9 - Peripheral vascular disease, unspecified Plan: - Pt with an extensive hx of PVD and previous multiple angioplasty/stenting procedures. - Pt most recently has followed with Dr. Najera. - He had previous CTA of the aorta with runoff which noted extensive bilateral LE stenting of the iliacs and SFA/popliteals with occlusion of the right SFA/popliteal stent with collateral reconstitution of the above-knee popliteal, in the LLE there was 40-50% stenosis of the common femoral artery - He will need to followup with Dr. Najera after this hospitalization. Problem Qualifiers (1) HTN (hypertension): Qualified Codes: I10 - Essential (primary) hypertension Cliff Albarran DO Jan 23, 2017 08:37
[2017-01-23] MEDS ORDERED: ACETAMINOPHEN 325 MG TAB PO PRN (09:45)
[2017-01-23 12:00] VITALS: BP 173/80; PULSE 64; RESP 14; TEMP 97.2; O2SAT 93
[2017-01-23] MEDS: amLODIPine BESYLATE 5 MG TAB PO SCH (12:25)
--- NOTE | 2017-01-23 12:27 | HHI.PR ---
Subjective Patient symptoms today Doing much better. Having BMs, passing flatus. Minimal abdominal pain. Tolerating regular diet. BP improved. Objective Vital Signs Vital Signs Date Time Temp Pulse Resp B/P (MAP) Pulse Ox O2 Delivery O2 Flow Rate FiO2 01/23/17 08:00 97.1 63 16 147/67 (93) 97 01/23/17 04:00 96.1 56 16 160/76 (104) 96 01/23/17 00:00 96.5 62 16 132/63 (86) 96 01/22/17 20:30 66 155/72 (99) 01/22/17 20:00 96.4 71 16 188/79 (115) 97 01/22/17 16:35 96.9 69 20 165/74 (104) 95 01/22/17 12:59 97.2 69 20 153/71 (98) 96 Intake & Output 01/23/17 01/23/17 07:00 19:00 Intake Total 600 ml Balance 600 ml Intake Oral 600 ml # Voids 3 Result Diagram: 01/21/17 1140 01/21/17 1140 Objective Remarks NAD. A/O x 3 RRR CTAB. abd soft, appropriate, non-distended. Swelling improved around RLQ incision, minimal discoloration. Ext NT. No edema. Medications and IVs Current Medications Medications (Trade) Dose Ordered Sig/Silvestre Route Start Time Stop Time Status Last Admin (Zofran Inj) 4 mg Q6H PRN IV PUSH 01/17/17 17:45 01/19/17 01:07 (Roxicodone) 5 mg Q4H PRN PO 01/17/17 17:45 01/19/17 04:35 (Morphine Inj) 4 mg Q3H PRN IV PUSH 01/17/17 17:45 (Reglan Inj) 5 mg Q8H PRN IV PUSH 01/19/17 13:00 (Catapres) 0.1 mg Q6H PRN PO 01/19/17 16:30 01/22/17 19:25 (Dulcolax Supp) 10 mg DAILY PRN RECTAL 01/20/17 12:15 (Dulcolax Ec) 10 mg DAILY PO 01/21/17 09:00 01/23/17 08:29 (Norvasc) 5 mg DAILY PO 01/23/17 10:30 (Plavix) 75 mg DAILY PO 01/24/17 09:00 (Cleocin) 600 mg Q8H PO 01/23/17 13:00 (Tylenol) 325 mg Q4H PRN PO 01/23/17 09:45 (Protonix) 40 mg Q24H PO 01/23/17 20:00 Assessment and Plan Assessment and Plan POD #6 s/p Right Robotic Radical Nephrectomy -Hep lock IV -Ambulate -GI/DVT prophylaxis -Restart Plavix -Appreciate Hospitalist assistance -D/C tomorrow Ben Rothman MD Jan 23, 2017 12:27
[2017-01-23] MEDS ORDERED: OXYC-392 PO (12:30)
[2017-01-23] MEDS ORDERED: CLIN150 PO (12:30)
[2017-01-23] MEDS ORDERED: CLINDAMYCIN 150 MG CAP PO SCH (13:00)
[2017-01-23 16:00] VITALS: BP 176/79; PULSE 65; RESP 14; TEMP 98.1; O2SAT 96
[2017-01-23] MEDS ORDERED: PANTOPRAZOLE SOD 40 MG DELAYED RELEASE TAB PO SCH (20:00)
[2017-01-23 20:25] VITALS: BP 172/81; PULSE 73; RESP 17; TEMP 96.8; O2SAT 96
[2017-01-24 00:30] VITALS: BP 128/77; PULSE 65; RESP 17; TEMP 96.7; O2SAT 98
[2017-01-24 04:25] VITALS: BP 169/80; PULSE 70; RESP 17; TEMP 96.7; O2SAT 97
[2017-01-24 08:00] VITALS: BP 168/81; PULSE 71; RESP 18; TEMP 96.4; O2SAT 95
[2017-01-24] MEDS: amLODIPine BESYLATE 5 MG TAB PO SCH (08:33)
[2017-01-24] MEDS: BISACODYL EC 5 MG TABEC PO SCH (08:34)
[2017-01-24] MEDS ORDERED: CLOPIDOGREL 75 MG TAB PO SCH (09:00)
--- NOTE | 2017-01-24 09:08 | HHI.PR ---
Subjective Remarks Pt reports that he continues to have upset stomach/gas pains for the last few days which is unrelieved. He reports that at home he typically takes Phazyme for these type of symptoms which generally relieves it. Abd swelling as improved. Pt tolerating his diet but has had a lot of issues with getting food or getting the correct foods that he orders which has been very frustrating for him and his . Objective Vitals Vital Signs Date Time Temp Pulse Resp B/P (MAP) Pulse Ox O2 Delivery O2 Flow Rate FiO2 01/24/17 08:00 96.4 71 18 168/81 (110) 95 01/24/17 04:25 96.7 70 17 169/80 (109) 97 01/24/17 00:30 96.7 65 17 128/77 (94) 98 01/23/17 20:25 96.8 73 17 172/81 (111) 96 01/23/17 16:00 98.1 65 14 176/79 (111) 96 01/23/17 12:00 97.2 64 14 173/80 (111) 93 Result Diagram: 01/21/17 1140 01/21/17 1140 Imaging Last Impressions Abdomen X-Ray 01/22/17 0600 Signed Impressions: Service Date/Time: Sunday, January 22, 2017 03:56 - CONCLUSION: Slightly decreased small bowel distention, probably a slowly resolving ileus. Miguel Angel Macias MD Objective Remarks General: NAD, AAOx3 Chest: CTA Cardiac: Regular Abd: +BS, soft mildly distended, incisions are c/d/i. healing appropriately abdomen is nontender Ext: No edema A/P Problem List: (1) HTN (hypertension) ICD Codes: I10 - Essential (primary) hypertension Status: Acute Plan: - At home pt was on Lisinopril/HCTZ 10/12.5mg po daily and Norvasc 10mg po daily - Pt thinks his outpt doctors rushed to place him on bp meds and he is a little resistant to resuming them. - Pt agrees to resume Norvasc 5mg daily - Observe BP readings - Pt may need further adjustment to his medications as an outpt. - Instructed the patient to keep a BP log at home to present to his PCP upon followup appt. (2) Right kidney mass ICD Codes: N28.89 - Other specified disorders of kidney and ureter Plan: - Pt is a 67 y/o male with hx of HTN and PVD who was previously being worked up for claudication with a CTA of the aorta with runoff and had an incidental finding of a right kidney mass. - Pt was evaluated by Urology and was admitted for right robotic radical nephrectomy which was performed on 01/17/[address] Puentes. - Pathology consistent with renal cell carcinoma - Post-op pain control per attending. - IS - PT daily - DVT prophylaxis - KUB (01/20) --> consistent with mild ileus and most likely post op air in abdomen wall - Repeat KUB (01/22) --> Improving ileus and less abdomen wall air. - (+) BM - Awaiting repeat BMP this morning. - Tylenol/oxycodone prn pain, but pain has been controlled with Tylenol - encourage OOB to chair - anticipate d/c to home 01/24/17 (3) CORINA (acute kidney injury) ICD Codes: N17.9 - Acute kidney failure, unspecified Status: Acute Plan: - Pts baseline Cr is 1.2-1.3 - stop IVFs - encourage PO intake - repeat BMP in AM (4) PVD (peripheral vascular disease) ICD Codes: I73.9 - Peripheral vascular disease, unspecified Plan: - Pt with an extensive hx of PVD and previous multiple angioplasty/stenting procedures. - Pt most recently has followed with Dr. Najera. - He had previous CTA of the aorta with runoff which noted extensive bilateral LE stenting of the iliacs and SFA/popliteals with occlusion of the right SFA/popliteal stent with collateral reconstitution of the above-knee popliteal, in the LLE there was 40-50% stenosis of the common femoral artery - He will need to followup with Dr. Najera after this hospitalization. - Plavix resumed Assessment and Plan Patient examined. Assessment and plan formulated with Ayah Silva PA-C. I agree with the above. Problem Qualifiers (1) HTN (hypertension): Qualified Codes: I10 - Essential (primary) hypertension Ayah Silva Jan 24, 2017 09:08 Cliff Albarran DO Jan 30, 2017 12:04
[2017-01-24] MEDS: SIMETHICONE 125 MG CHEWABLE TAB PO SCH ×2 (09:56→14:18)
[2017-01-24 09:59] LABS: BICARBONATE 25.6 MEQ/L (21.0-32.0)
[2017-01-24 12:00] VITALS: BP 167/77; PULSE 74; RESP 18; TEMP 97; O2SAT 97
[2017-01-24] MEDS ORDERED: AMLO5 PO (13:09)
--- NOTE | 2017-01-26 14:37 | HHI.DS ---
Discharge Summary Admission Date Jan 17, 2017 at 18:20 Discharge Date: Jan 24, 2017 Admitting Diagnosis (1) HTN (hypertension) Diagnosis: Secondary ICD Codes: I10 - Essential (primary) hypertension Status: Acute (2) Right kidney mass Diagnosis: Principal ICD Codes: N28.89 - Other specified disorders of kidney and ureter (3) CORINA (acute kidney injury) ICD Codes: N17.9 - Acute kidney failure, unspecified Status: Acute (4) PVD (peripheral vascular disease) ICD Codes: I73.9 - Peripheral vascular disease, unspecified Procedures Right Robotic Radical Nephrectomy CBC/BMP: 01/24/17 0912 Significant Findings Laboratory Tests Test 01/24/17 09:12 Creatinine 1.52 MG/DL (0.60-1.30) Estimat Glomerular Filtration Rate 46 ML/MIN (>89) Hospital Course 67 yo male admitted following Right Robotic Radical Nephrectomy. His post operative course was complicated by an ileus, which resolved on POD #4, and BP issues. Hospitalist was consulted for medical management who switched him to Norvasc. He was discharged on POD #6 after having regular bowel movements and his pain well controlled. Pt Condition on Discharge: Stable Discharge Disposition: Discharge Home Discharge Instructions DIET: Follow Instructions for: As Tolerated, No Restrictions Activities you can perform: Regular-No Restrictions New Medications: Amlodipine (Norvasc) 5 Mg Tab 5 MG PO BID for Blood Pressure Management, #62 TAB Clindamycin (Cleocin) 150 Mg Cap 600 MG PO Q8H for Infection for 5 Days, #15 CAP Oxycodone (Oxycodone) 5 Mg Tab 5 MG PO Q4H PRN for PAIN SCALE 6-10 for 5 Days, #30 TAB Continued Medications: Clopidogrel (Plavix) 75 Mg Tab 75 MG PO DAILY for Blood Clot Prevention, #30 TAB 0 Refills Discontinued Medications: Lisinopril-Hctz (Lisinopril-Hctz) 10-12.5 Mg Tab 1 TAB PO DAILY for Blood Pressure Management, #30 TAB 0 Refills Ben Puentes MD Jan 26, 2017 14:37
--- NOTE | 2017-01-27 09:58 | MP ---
cc: MAGDIEL PEREIRA MD DATE OF SURGERY: 01/17/2017 PREOPERATIVE DIAGNOSIS 1. Right renal mass. 2. Hypertension. POSTOPERATIVE DIAGNOSIS 1. Right renal mass. 2. Hypertension. PROCEDURE PERFORMED Right robotic-assisted laparoscopic radical nephrectomy. SURGEON Deloris. ANESTHESIA General. COMPLICATIONS None. PREOPERATIVE ANTIBIOTICS Ancef 2 grams IV. DRAINS None. ESTIMATED BLOOD LOSS 150 mL. SPECIMENS Right kidney for permanent DISPOSITION Stable to Recovery. INDICATION The patient is a 57-year-old male who was found to have an incidental right renal mass that appeared to be solid in nature. Treatment options were discussed and he elected to proceed with removal of his right kidney. After the risks, benefits and alternatives were explained to the patient, the patient elected to proceed. Informed consent was obtained. DETAILS OF PROCEDURE The patient was properly identified, brought back to the operating room and placed supine on the operating table. A timeout was performed. Under the direction of anesthesiology the patient and induced under a general aesthetic. Preoperative antibiotics in the form of Ancef 2 grams IV were given within one hour of the start of the procedure. The patient was then placed in a left lateral decubitus position with the right side up. All pressure points were padded. A Steward catheter was placed under sterile technique. At this time a stab incision was made superior and lateral to the umbilicus with a 15 blade. I gained access to the abdominal cavity with a Veress needle. Following insufflation a 12 mm long camera port was placed under direct visualization. The intra-abdominal cavity was inspected. There was no evidence of any intra-abdominal injury including bleeding. At this time the remaining ports were placed under direct visualization including two 8 mm robotic ports which triangulated off the camera port. A 5 mm liver retractor port in the midline and two 12 mm orthodontist assistant ports, one superior to the umbilicus and one inferior to the umbilicus in the midline. At this time the robot was then brought into position. I began by taking down some minor adhesions in the abdominal cavity from the mesocolon and the anterior abdominal wall. I then using electrocautery and blunt dissection took down the white line of Toldt, reflecting the colon medially. This exposed the retroperitoneum. The patient had significant perinephric fat that was quite sticky. At this time the duodenum was identified and it was kocherized and exposed the inferior vena cava. I further mobilized the colon along the upper pole of the kidney. Under direct visualization a long locking grasper was then placed for liver retraction. This was then secured to the abdominal sidewall. A plane was developed between the IVC and the right kidney. The right kidney was then retracted anteriorly and I followed the IVC up to the attachment of the right gonadal vein to the IVC. This was taken with a robotic vessel sealer. This further helped exposure. As I marched up the IVC further I came across the renal hilum and had one artery and one vein. The artery was carefully dissected out circumferentially. The patient's right renal vein was carefully dissected out as well; however, there was a small anterior branch coming off the trunk of the renal vein and this was carefully taken with a robotic vessel sealer. Once the artery and vein were each dissected out circumferentially and separately they were taken separately with the endovascular GI stapler. The lateral and superior pole was then freed with blunt dissection and electrocautery. The ureter was then taken by an endovascular stapler. At this point the entire kidney was free. It was placed into an EndoCatch bag for later removal. Insufflation was then dropped down to 7 mmHg. The renal bed was carefully inspected. The hilum appeared to be dry. There was no oozing from the adrenal bed was identified as well. Three grams of Camron was then placed on the renal hilum and the adrenal bed for hemostasis. The kidney was then removed. The right lower quadrant incision was a tenuous closure. It was closed with running 1-0 PDS. The fascia was quite thin. All the skin incisions were closed with 4-0 Monocryl. An abdominal binder was then placed. This concluded the procedure. The patient was extubated and sent to Recovery in stable condition on the for routine postoperative care. Sponge and needle count was correct at the end of the case. MD NADER German/GABRIELA /2:39 PM /9:35 AM
== END 2017-01-24 15:40 | disposition home or self-care (01) | DRG 657 ==
LOC: HSDC 11:28 → HSDI 18:20 → HOCB 21:24
PROVIDERS: ADMIT Urology; ATTEND Urology
PROC: 8E0W4CZ Robotic Assisted Procedure of Trunk Region, Percutaneous Endoscopic Approach (ICD-10-PCS; 2017-01-17)
PROC: 0TT04ZZ Resection of Right Kidney, Percutaneous Endoscopic Approach (ICD-10-PCS; principal; 2017-01-17 13:17)
DX: C64.1 Malignant neoplasm of right kidney, except renal pelvis (principal); N17.9 Acute kidney failure, unspecified; K56.7 Ileus, unspecified; K50.90 Crohn's disease, unspecified, without complications; K91.89 Other postprocedural complications and disorders of digestive system; I10 Essential (primary) hypertension; I73.9 Peripheral vascular disease, unspecified; E78.5 Hyperlipidemia, unspecified; K30 Functional dyspepsia; M19.90 Unspecified osteoarthritis, unspecified site; Z87.891 Personal history of nicotine dependence; Z95.820 Peripheral vascular angioplasty status with implants and grafts; Z95.1 Presence of aortocoronary bypass graft
CPT/HCPCS: 74000; 76998; 80048; 82805; 85025; 85027; 85610; 86850; 86900; 86901; 86920; 88307; 94150; C9113; J0131; J0690; J1100; J1170; J2150; J2250; J2405; J3010; J7030; J7120

== ENCOUNTER 2017-03-14 05:15 | Inpatient (IN) | payer MEDICARE ==
[~2017-03-14] VITALS: Ht 182.9 cm; Wt 98.0 kg
[~2017-03-14 05:15] MED LIST changes: +AMLO5 PO; +CLIN150 PO; -LACTATED RINGER'S 1000 ML INJ 2,000 ML IV ONE; -NORMOSOL R INJ 1,000 ML IV ONE; -ONDANSETRON HCL 4 MG/2 ML VIAL IV PUSH ONE; +OXYC-392 PO; +PLAV75TA29 PO; -PROPOFOL 200 MG/20 ML AMP IV ONE; -SUGAMMADEX SODIUM 200 MG/2 ML VIAL IV PUSH ONE
[2017-03-14] MEDS ORDERED: ACETAMINOPHEN 1000 MG/100 ML 100 ML IV SCH (05:30)
[2017-03-14] MEDS ORDERED: ceFAZolin 2 GM PREMIX 50 ML IV SCH (05:30)
[2017-03-14] MEDS ORDERED: LACTATED RINGER'S 1000 ML IV PRN (05:45)
[2017-03-14] MEDS ORDERED: POVIDONE IODINE 5% (ANTISEPSIS KIT) 4 APPLICATIONS EACH NARE PRN (05:45)
[2017-03-14] MEDS ORDERED: METOPROLOL TARTRATE 25 MG TAB PO PRN (05:45)
[2017-03-14] MEDS ORDERED: SODIUM CHLORID 0.9% 500 ML IV PRN (05:45)
[2017-03-14] MEDS ORDERED: CHLORHEXIDINE GLUCONATE 2 % 1 PACK (2 CLOTHS) TOPICAL PRN (05:45)
[2017-03-14] MEDS ORDERED: INSULIN HUMAN REGULAR 1,000 UNITS/10 ML VIAL SQ PRN (05:45)
[2017-03-14] MEDS ORDERED: ACETAMINOPHEN 1000 MG/100 ML 100 ML IV ONE (06:42)
[2017-03-14] MEDS ORDERED: FAMOTIDINE 20 MG/2 ML VIAL ONE (06:43)
[2017-03-14] MEDS ORDERED: CARV6.252 PO (06:54)
[2017-03-14] MEDS ORDERED: BUPIVACAINE/EPINEPHRINE 0.5% 50 ML VIAL ONE ×2 (07:10→08:39)
[2017-03-14] MEDS ORDERED: SODIUM CHLORIDE 0.9% 20 ML VIAL ONE ×2 (07:56)
[2017-03-14] MEDS ORDERED: BUPIVACAINE LIPOSOME PF 1.3% 20 ML VIAL ONE (07:56)
[2017-03-14] MEDS ORDERED: SODIUM CHLORIDE 0.9% FLUSH 10 ML FLUSH IV FLUSH PRN (11:45)
[2017-03-14] MEDS ORDERED: diphenhydrAMINE HCL 25 MG CAP PO PRN (11:45)
[2017-03-14] MEDS ORDERED: oxyCODONE/ACETAMINOPHEN 5 MG/325 MG TAB PO PRN (11:45)
[2017-03-14] MEDS ORDERED: oxyCODONE/ACETAMINOPHEN 10 MG/325 MG TAB PO PRN (11:45)
[2017-03-14] MEDS ORDERED: NALOXONE HCL 0.4 MG/ML AMP IV PUSH PRN (11:45)
[2017-03-14] MEDS ORDERED: ONDANSETRON HCL 4 MG/2 ML VIAL IV PUSH PRN (11:45)
[2017-03-14] MEDS ORDERED: HYDROmorphone HCL PF 1 MG/ML VIAL IV PUSH PRN (11:45)
[2017-03-14] MEDS ORDERED: Post-op Orders (for Pharmacy) MISC XX ONE (11:59)
--- NOTE | 2017-03-14 12:01 | PD.OP ---
cc: Jose Elias Ahmadi MD; Ben Puentes MD Operative Report Date of Surgery: Mar 14, 2017 Preoperative Diagnosis: (1) Ventral incisional hernia Postoperative Diagnosis: (1) Ventral incisional hernia Procedure: Diagnostic laparoscopy Open repair of ventral incisional hernia 6x8 cm with mesh Extensive lysis of adhesions 45 minutes Anesthesia: MALIK Surgeon: Jose Elias Ahmadi Hat Checker(s): Audrey LEWIS Operation and Findings: EBL: 5 cc Operative findings: Evidence of history of inflammation of the terminal ileum consistent with clinical history of Crohn's disease. The patient had an approximately 6 x 8 cm fascial defect in the right lower quadrant at the site of previous nephrectomy extraction. There was multiple loops of small bowel densely adherent to the hernia sac. I was unable to safely lyse the adhesions laparoscopically and therefore proceeded to perform open lysis of adhesions and repair. Procedure in detail: The patient was taken to the operating room placed in supine position. Gen. endotracheal anesthesia was induced and the abdomen was prepped and draped in usual sterile fashion. Both arms were tucked. Ioban was placed. Timeout was performed to verify correct patient procedure and site. Local anesthetic was then injected in the skin and subcutaneous tissue in the left upper abdomen and a 5 mm incision made. The abdomen was directly entered with a 5 mm trocar and the laparoscope. The abdomen was insufflated to 15 mmHg with CO2 gas which the patient tolerated well. He was placed in Trendelenburg position. Attention was turned to the right lower quadrant. There was immediately noted to be a fairly large hernia defect with multiple loops of small intestine entering the hernia. Two 5 mm trochars were placed in the left lower abdomen. The hernia defect in the RLQ was about 6x8 cm in diameter. On further inspection, the loops were densely adherent to the hernia sac. Initial attempt at laparoscopic lysis of adhesions was unsuccessful and I opted to proceed with open operation. The abdomen desufflated. Local anesthetic was injected in skin and subcutaneous tissue at the site of previous incision in the right lower quadrant. Incision was made. This dissection carried through skin and subcutaneous tissue with electrocautery and the hernia sac was entered. There were multiple loops of small bowel adherent to the hernia sac. These were meticulously and carefully taken down with the Metzenbaum scissors. There are 2 areas of serosal tear which were repaired with 3-0 silk suture. The terminal ileum was thickened with creeping fat. It was not actively inflamed. The intestine was placed back into the abdominal cavity. The layers of the abdominal wall was re-created by dissecting subcutaneous tissue off the anterior fascia and the superficial fascial layers and the deep fascial layers with electrocautery. At this point the fascia was closed in 2 layers with running #1 PDS suture. This minimal tension. I opted to perform onlay mesh repair. A 15 x 15 cm ultra Pro advanced lightweight polypropylene mesh was cut to 15 x 11 cm and placed overlying the fascial repair. It was secured in place with fascial tommy. There is minimal overlap of mesh in the left side of the fascial defect. A 3 x 8 cm piece of mesh was placed in this area and overlapping the primary mass. At this point there is wide overlap of the fascial repair. Hemostasis was achieved. The incision was closed with a deep dermal running 3-0 Vicryl suture and wide skin tommy. The repair was viewed laparoscopically after re-insufflating the abdomen. The abdomen was then desufflated and trochars removed. Incisions closed with subcuticular 4-0 Monocryl. The patient tolerated the procedure well was extubated and taken to PACU in stable condition. Jose Elias Ahmadi MD Mar 14, 2017 12:01
[2017-03-14] MEDS ORDERED: DO NOT ADM ANY ANTICOAGULANT DRUGS PRN (12:09)
[2017-03-14] MEDS: LACTATED RINGER'S 1000 ML INJ 1,000 ML IV SCH (14:06)
[2017-03-14 16:00] VITALS: BP 147/70; PULSE 59; RESP 20; TEMP 98.7; O2SAT 97
[2017-03-14] MEDS: KETOROLAC TROMETHAMINE 30 MG/ML (IVP) VIAL IV PUSH SCH ×2 (16:27→21:52)
[2017-03-14] MEDS: PANTOPRAZOLE SODIUM 40 MG VIAL IV PUSH SCH (16:27)
[2017-03-14 20:07] VITALS: BP 136/70; PULSE 68; RESP 18; TEMP 97; O2SAT 97
[2017-03-14] MEDS: CARVEDILOL 6.25 MG TAB PO SCH (21:51)
[2017-03-14] MEDS: amLODIPine BESYLATE 5 MG TAB PO SCH (21:52)
[2017-03-14] MEDS: SODIUM CHLORIDE 0.9% FLUSH 10 ML FLUSH IV FLUSH SCH (21:53)
[2017-03-14 23:54] VITALS: BP 118/58; PULSE 68; RESP 18; TEMP 97.2; O2SAT 94
[2017-03-15] MEDS: LACTATED RINGER'S 1000 ML INJ 1,000 ML IV SCH ×4 (00:44→23:04)
[2017-03-15] MEDS: KETOROLAC TROMETHAMINE 30 MG/ML (IVP) VIAL IV PUSH SCH ×4 (03:33→23:07)
[2017-03-15 04:31] VITALS: BP 132/62; PULSE 69; RESP 18; TEMP 96.8; O2SAT 96
[2017-03-15 08:00] VITALS: BP 162/77; PULSE 66; RESP 21; TEMP 97.6; O2SAT 95
[2017-03-15] MEDS: SODIUM CHLORIDE 0.9% FLUSH 10 ML FLUSH IV FLUSH SCH ×2 (09:00→23:04)
[2017-03-15] MEDS: amLODIPine BESYLATE 5 MG TAB PO SCH ×2 (09:38→23:05)
[2017-03-15] MEDS: CARVEDILOL 6.25 MG TAB PO SCH ×2 (09:38→23:05)
[2017-03-15 12:00] VITALS: BP 147/71; PULSE 62; RESP 20; TEMP 97.9; O2SAT 95
--- NOTE | 2017-03-15 13:10 | HHI.PR ---
Subjective Subjective Notes Tolerating fulls. Voiding well. Pain is controlled with the IV toradol. No BM yet. Objective Vitals/I&O Vital Signs Date Time Temp Pulse Resp B/P (MAP) Pulse Ox O2 Delivery O2 Flow Rate FiO2 03/15/17 08:00 97.6 66 21 162/77 (105) 95 03/14/17 14:30 Nasal Cannula 2 Narrative Exam NAD Abd: soft, bandage and binder in place A/P Assessment and Plan 67 yo M POD 1 s/p ventral hernia repair. Doing well post op. No BM yet. Start regular diet. Anticipate dc home tomorrow. Jose Elias Ahmadi MD Mar 15, 2017 13:10
[2017-03-15] MEDS: ENOXAPARIN SODIUM 40 MG/0.4 ML SYRINGE SQ SCH (13:34)
[2017-03-15 16:00] VITALS: BP 145/80; PULSE 65; RESP 20; TEMP 96.9; O2SAT 95
[2017-03-15] MEDS: PANTOPRAZOLE SODIUM 40 MG VIAL IV PUSH SCH (17:01)
[2017-03-15 20:27] VITALS: BP 159/89; PULSE 89; RESP 20; TEMP 96.8; O2SAT 97
[2017-03-16 00:08] VITALS: BP 144/63; PULSE 74; RESP 18; TEMP 97; O2SAT 93
[2017-03-16] MEDS: KETOROLAC TROMETHAMINE 30 MG/ML (IVP) VIAL IV PUSH SCH ×2 (03:40→09:15)
[2017-03-16] MEDS: LACTATED RINGER'S 1000 ML INJ 1,000 ML IV SCH (04:08)
[2017-03-16 08:00] VITALS: BP 164/77; PULSE 67; RESP 18; TEMP 96.7; O2SAT 96
[2017-03-16] MEDS: amLODIPine BESYLATE 5 MG TAB PO SCH (09:15)
[2017-03-16] MEDS: SODIUM CHLORIDE 0.9% FLUSH 10 ML FLUSH IV FLUSH SCH (09:15)
[2017-03-16] MEDS: CARVEDILOL 6.25 MG TAB PO SCH (09:15)
[2017-03-16] MEDS: ENOXAPARIN SODIUM 40 MG/0.4 ML SYRINGE SQ SCH (10:44)
== END 2017-03-16 11:16 | disposition home or self-care (01) | DRG 336 ==
LOC: HSDI 05:15 → N07B 14:38
PROVIDERS: ADMIT Surgery; ATTEND Surgery
PROC: 0WUF0JZ Supplement Abdominal Wall with Synthetic Substitute, Open Approach (ICD-10-PCS; 2017-03-14)
PROC: 0WJG4ZZ Inspection of Peritoneal Cavity, Percutaneous Endoscopic Approach (ICD-10-PCS; 2017-03-14)
PROC: 3E0T3BZ Introduction of Anesthetic Agent into Peripheral Nerves and Plexi, Percutaneous Approach (ICD-10-PCS; 2017-03-14)
PROC: 0DNW0ZZ Release Peritoneum, Open Approach (ICD-10-PCS; principal; 2017-03-14 08:30)
DX: K43.2 Incisional hernia without obstruction or gangrene (principal); K50.00 Crohn's disease of small intestine without complications; I10 Essential (primary) hypertension; E78.5 Hyperlipidemia, unspecified; I73.9 Peripheral vascular disease, unspecified; Z53.31 Laparoscopic surgical procedure converted to open procedure; Z87.891 Personal history of nicotine dependence; Z90.5 Acquired absence of kidney; Z95.828 Presence of other vascular implants and grafts
CPT/HCPCS: 94150; C9113; C9290; J0131; J1650; J1885; J7120

== ENCOUNTER 2017-07-31 08:26 | Day surgery (SDC) | payer MEDICARE ==
[~2017-07-31] VITALS: Ht 182.9 cm; Wt 100.0 kg
[~2017-07-31 08:26] MED LIST changes: +CARV6.252 PO; -CLIN150 PO; -OXYC-392 PO
[2017-07-31 08:49] VITALS: BP 160/79; PULSE 68; RESP 20; TEMP 97.9; O2SAT 95
[2017-07-31] MEDS ORDERED: SODIUM CHLORIDE 0.9% 1000 ML IV SCH (09:00)
[2017-07-31 09:20] LABS: AUTOMATED NEUTROPHIL # 5.9 TH/MM3 (1.8-7.7); BASOPHIL # 0.1 TH/MM3 (0-0.2); BASOPHIL % 1.7 % (0.0-2.0); EOSINOPHIL # 0.2 TH/MM3 (0-0.4); EOSINOPHIL % 1.9 % (0.0-4.0); HEMATOCRIT 41.7 % (39.0-51.0); LYMPHOCYTE # 1.7 TH/MM3 (1.0-4.8); MEAN CELL VOLUME 85.1 FL (80.0-100.0); MEAN CORPUSCULAR HEMOGLOBIN 28.5 PG (27.0-34.0); MEAN CORPUSCULAR HGB CONC 33.4 % (32.0-36.0); MONO % 9.3 % (0.0-8.0); MONOCYTE # 0.8 TH/MM3 (0-0.9); NEUT % 67.1 % (16.0-70.0); PLATELET COUNT 413 TH/MM3 (150-450); RED CELL DISTRIBUTION WIDTH 13.6 % (11.6-17.2); WHITE BLOOD COUNT 8.8 TH/MM3 (4.0-11.0)
[2017-07-31 09:28] LABS: PROTHROMBIN TIME - PATIENT 10.4 SEC (9.8-11.6)
[2017-07-31] MEDS ORDERED: LIDOCAINE HCL 1% 20 ML VIAL ONE (09:41)
[2017-07-31] MEDS ORDERED: MIDAZOLAM HCL 2 MG/2 ML VIAL ONE (09:56)
[2017-07-31 10:55] VITALS: BP 136/81; PULSE 55; RESP 20; TEMP 97.6; O2SAT 93
[2017-07-31 11:10] VITALS: BP 127/71; PULSE 55; RESP 20; O2SAT 94
--- NOTE | 2017-07-31 11:22 | RADRPT ---
EXAM DATE/TIME: 07/31/2017 10:09 [place] COMPARISON: No previous studies available for comparison. INDICATIONS : Mass. SEDATION TIME: 30 minutes MEDICATION(S): 1.) 2 mg midazolam (Versed) IV 2.) 100 mcg fentanyl (Sublimaze) IV DEVICE(S): 1.) 8 Fr Skater FLUID: Total volume of 500 cc of brown fluid was removed. Fluid was discarded. MEDICAL HISTORY : Renal cell carcinoma. Crohns disease. SURGICAL HISTORY : Nephrectomy, right. ENCOUNTER: Initial ACUITY: 1 day PAIN SCORE: 0/10 LOCATION: Bilateral pelvis PROCEDURE: 1.) Conscious sedation with continuous EKG and oximetry monitoring. 2.) EKG and oximetry remained stable throughout the procedure. PROCEDURE : CT guided right abdominal seroma The risks, benefits and alternatives to the procedure were explained and verbal and written consent w as obtained. Using automated exposure control and adjustment of the mA and/or kV according to patien t size, radiation dose was kept as low as reasonably achievable to obtain optimal diagnostic quality images. The site was prepped in sterile fashion. Full sterile technique was used, including cap, ma sk, sterile gloves and gown and a large sterile sheet. Hand hygiene and 2% chlorhexidine and/or beta dine/alcohol prep was utilized per protocol for cutaneous antisepsis. The skin and subcutaneous tiss ues were infiltrated with local anesthetic solution. DICOM format image data is available electronic ally for review and comparison. Under CT guidance 8-Armenian straight catheter was placed in the fluid collection right lower quadrant. 500 cc of bloody fluid was removed. The cavity was then irrigated clear with normal saline. 100 cc of Betadine solution were instilled allowed to dwell for 20 minutes. Fluid was then removed Catheter was sutured in good position and placed to according drainage. He will return Monday AM for catheter removal. CONCLUSION: Uncomplicated seroma drainage. Moderate residual clot remained Juan M Qiu MD FACR on July 31, 2017 at 11:14 Board Certified Radiologist. This report was verified electronically.
[2017-07-31 11:40] VITALS: BP 128/87; PULSE 102; RESP 20; O2SAT 98
[2017-07-31 12:20] VITALS: BP 143/70; PULSE 98; RESP 16; O2SAT 97
== END 2017-07-31 13:15 | disposition home or self-care (01) ==
LOC: HRAD 08:26 → HRIP 08:34 → HRAD 13:15
PROVIDERS: ATTEND Surgery
DX: N28.89 Other specified disorders of kidney and ureter (principal); C64.9 Malignant neoplasm of unspecified kidney, except renal pelvis; K50.90 Crohn's disease, unspecified, without complications; Z90.5 Acquired absence of kidney
CPT/HCPCS: 50390; 77012; 85025; 85610; 85730; 99152; 99153; C1729; J2250; J3010

== ENCOUNTER 2017-08-02 10:36 | Day surgery (SDC) | payer MEDICARE ==
[2017-08-02 11:04] VITALS: BP 166/82; PULSE 65; RESP 20; TEMP 97.6; O2SAT 94
== END 2017-08-02 11:15 | disposition home or self-care (01) ==
LOC: HROP 10:36 → HRIP 10:40 → HROP 11:15
PROVIDERS: ATTEND Surgery
DX: K91.872 Postprocedural seroma of a digestive system organ or structure following a digestive system procedure (principal)

== ENCOUNTER 2017-08-04 07:23 | Day surgery (SDC) | payer MEDICARE ==
[2017-08-04 07:44] VITALS: BP 152/78; PULSE 60; RESP 20; TEMP 97.5; O2SAT 95
== END 2017-08-04 08:00 | disposition home or self-care (01) ==
LOC: HROP 07:23 → HRIP 07:26 → HROP 08:00
PROVIDERS: ATTEND Surgery
DX: Z48.03 Encounter for change or removal of drains (principal)